=== PATIENT | male | born 1950 | race American Indian/Alaskan Native ===

== ENCOUNTER 2017-08-26 09:46 | Emergency (ER) | payer MEDICARE, OTHER ==
[2017-08-26 09:52] VITALS: BP 161/57
[2017-08-26] MEDS ORDERED: Sodium Chloride 0.9% 10 ML Syringe FLUSH PRN (09:54)
[2017-08-26 10:33] LABS: CHLORIDE,CL 97 mmol/L (101-111); SODIUM,NA 137 mmol/L (135-145)
--- NOTE | 2017-08-26 10:51 | CR ---
CLINICAL HISTORY: 67-year-old male with chest pain. INTERPRETATION: Abnormal. Upright AP portable chest film demonstrates volume loss right lung with extensive subpleural reactive thickening and some underlying platelike atelectasis in the midlung. Previous infection? History tra jv? Normal cardiac silhouette without cephalization of flow, signs of alveolar edema or dependent pleural effusion on the left. No lung mass or hilar lymphadenopathy. No atelectasis or infiltrate in the left lung. No pneumothorax . CONCLUSION: Evidence probable old infection or trauma right chest (see above). No comparison films im mediately available for this institution. No acute cardiopulmonary abnormality.
--- NOTE | 2017-08-26 10:53 | EDM.PDOC ---
ED HPI GENERAL MEDICAL PROBLEM - General Chief Complaint: General Stated Complaint: hypotension, nausea & weak. In by amb Time Seen by Provider: 08/26/17 10:00 Source of Information: Reports: Patient, Family, RN, RN Notes Reviewed History Limitations: Reports: No Limitations - History of Present Illness INITIAL COMMENTS - FREE TEXT/NARRATIVE: Pt presents to the ER per [facility] with c/o hypotension this morning. Patient is a hemodialysis patient and last dialyzed on 08/25 in [place]. Patient reportedly went into cardiac arrest last month and CPR was done. He states he is very sore in the thorax from the CPR. Patient states he was up making his grandson breakfast this morning when he began to feel very weak, dizzy, and like he was going to "black out". Patient states he took his BP at home and it was 70's/30's. Patient presented to the [facility], where he was sent to the ER per ambulance. Upon arrival patient is alert and oriented, and BP is stable. Pt denies dizziness at this time, N/V/D, cough, fever or chills. Onset: Today, Sudden Bilateral Anterior Chest Pain Score (Numeric/FACES): 5 - Related Data Allergies Allergy/AdvReac Type Severity Reaction Status Date / Time amlodipine Allergy Cannot Verified 08/26/17 10:07 Remember bupropion HCl Allergy Cannot Verified 08/26/17 10:07 [From Wellbutrin] Remember duloxetine [Duloxetine] Allergy Cannot Verified 08/26/17 10:07 Remember paroxetine [Paroxetine] Allergy Cannot Verified 08/26/17 10:07 Remember varenicline tartrate Allergy Rash Verified 08/26/17 10:07 [From Chantix] zolpidem tartrate Allergy Cannot Verified 08/26/17 10:07 [From Ambien] Remember Home Meds: Home Meds Gabapentin [Neurontin] 300 mg PO DAILY PRN 07/16/13 [History] Insulin Aspart [Novolog Flexpen] 30 units SUBCUT TID 07/16/13 [History] Insulin Detemir [Levemir Flexpen] 50 unit SQ BEDTIME 07/16/13 [History] Metoprolol Succinate 25 mg PO BID 07/16/13 [History] Aspirin [Halfprin] 81 mg PO DAILY 08/24/13 [History] Calcium Acetate [Phoslo] 2 cap PO TIDM 08/24/13 [History] Furosemide [Lasix] 40 mg PO BID 08/24/13 [History] Simvastatin [Zocor] 20 mg PO BEDTIME 08/24/13 [History] [place]/Min Oil/Karishma/Wool Alcoh [Eucerin Creme] 1 applic TOP DAILY 09/24/14 [ History] Lactose-Reduced Food [Boost] 1 box PO DAILY 09/24/14 [History] Mometasone/Formoterol [Dulera 100-5 MCG] 2 puff INH DAILY 09/24/14 [History] Triamcinolone Acetonide [Triamcinolone Acetonide 0.1% Crm] 1 applic TOP DAILY [History] Vitamin B Complex 1 cap PO DAILY 09/24/14 [History] hydrALAZINE [Apresoline] 25 mg PO BID 09/24/14 [History] hydrALAZINE [Apresoline] 50 mg PO BID 09/24/14 [History] Past Medical History Other HEENT History: I & D of peritonsillar abscess 2010 Other Cardiovascular History: left carotid endarterectomy 2012 (with vein graft) Other Genitourinary History: stage 5 () Other Musculoskeletal History: SHOULD BLADE FRACTURE 2012 Other Endocrine/Metabolic History: diabetic polyneuropathy - Past Surgical History Other HEENT Surgeries/Procedures: septoplasy 2005. Cerumen impaction and removal 2009 Other Musculoskeletal Surgeries/Procedures:: right toe 2013 Social & Family History - Tobacco Use Smoking Status *Q: Former Smoker Years of Tobacco use: 34 Used Tobacco, but Quit: Yes Month/Year Tobacco Last Used: 0 Second Hand Smoke Exposure: Yes - Alcohol Use Days Per Week of Alcohol Use: 0 - Recreational Drug Use Recreational Drug Use: No Drug Use in Last 12 Months: No ED ROS GENERAL - Review of Systems Review Of Systems: ROS reveals no pertinent complaints other than HPI. ED EXAM, GENERAL - Physical Exam Exam: See Below Exam Limited By: No Limitations General Appearance: Alert, WD/WN, No Apparent Distress Eye Exam: Bilateral Eye: EOMI, Normal Inspection Ears: Normal External Exam, Hearing Grossly Normal Nose: Normal Inspection Throat/Mouth: Normal Inspection, Normal Voice, No Airway Compromise Head: Atraumatic, Normocephalic Neck: Normal Inspection, Supple, Non-Tender, Full Range of Motion Respiratory/Chest: No Respiratory Distress, Lungs Clear, Normal Breath Sounds, No Accessory Muscle Use, Chest Non-Tender Cardiovascular: Normal Peripheral Pulses, Regular Rate, Rhythm, No Edema, No Gallop, No JVD, No Murmur, No Rub Peripheral Pulses: 2+: Radial (L), Radial (R) GI/Abdominal: Normal Bowel Sounds, Soft, Non-Tender, No Organomegaly, No Distention, No Abnormal Bruit, No Mass (Male) Exam: Deferred Rectal (Males) Exam: Deferred Back Exam: Normal Inspection, Full Range of Motion, NT Extremities: Normal Inspection, Normal Range of Motion, Non-Tender, No Pedal Edema, Normal Capillary Refill, Other (AV fistula left arm) Neurological: Alert, Oriented, Normal Cognition, Normal Gait, Normal Reflexes, No Motor/Sensory Deficits, Slow to Respond Psychiatric: Flat Affect Skin Exam: Warm, Dry, Intact, Normal Color, No Rash Lymphatic: No Adenopathy EKG INTERPRETATION EKG Date: 08/27/17 Course - Vital Signs Last Recorded V/S: Last Vital Signs Temp 97.6 F 08/26/17 09:51 Pulse 77 08/26/17 09:51 Resp 20 08/26/17 09:51 BP 161/57 H 08/26/17 09:51 Pulse Ox 100 08/26/17 09:51 Orthostatic Blood Pressure [ 144/61 Standing] Orthostatic Blood Pressure [ 149/61 Sitting] Orthostatic Blood Pressure [ 150/50 Supine] - Orders/Labs/Meds Orders: Active Orders 24 hr Category Date Time Status EKG Documentation Completion [RC] STAT Care 08/26/17 09:54 Active Peripheral IV Care [RC] . DIRECTED Care 08/26/17 09:54 Active Peripheral IV Insertion Adult [OM.PC] Stat Oth 08/26/17 09:54 Ordered Labs: Laboratory Tests 08/26/17 08/26/17 08/26/17 Range/Units 10:03 10:03 10:03 WBC 8.2 (5.0-10.0) 10^3/uL RBC 3.92 L (4.6-6.2) 10^6/uL Hgb 11.5 L D (14.0-18.0) g/dL Hct 35.5 L (40.0-54.0) % MCV 90.6 D (80-100) fL MCH 29.3 (27.0-34.0) pg MCHC 32.4 L (33.0-35.0) g/dL Plt Count 175 D (150-450) 10^3/uL Neut % (Auto) 61.0 (42.2-75.2) % Lymph % (Auto) 19.0 L (20.5-50.1) % [place] % (Auto) 14.1 H (2-8) % Eos % (Auto) 5.4 H (1.0-3.0) % Baso % (Auto) 0.5 (0.0-1.0) % PT 9.7 (9.0-12.0) SEC INR 1.0 (0.9-1.2) Sodium 137 (135-145) mmol/L Potassium 4.2 (3.6-5.0) mmol/L Chloride 97 L (101-111) mmol/L Carbon Dioxide 30.0 (21.0-31.0) mmol/L Anion Gap 14.2 BUN 33 H (7-18) mg/dL Creatinine 4.7 H (0.6-1.3) mg/dL Est Cr Clr Drug Dosing 13.95 mL/min Estimated GFR (MDRD) 13 BUN/Creatinine Ratio 7.02 Glucose 158 H (74-105) mg/dL Lactic Acid (0.5-2.2) mmol/L Calcium 7.9 L (8.4-10.2) mg/dl Total Bilirubin 0.7 (0.2-1.0) mg/dL AST 28 (10-42) IU/L ALT 19 (10-60) IU/L Alkaline Phosphatase 149 H (42-121) IU/L Troponin I 0.06 H* (0.00-0.02) ng/ml B-Natriuretic Peptide 593 H (0-100) pg/ml Total Protein 7.9 (6.7-8.2) g/dl Albumin 3.4 (3.2-5.5) g/dl Globulin 4.5 Albumin/Globulin Ratio 0.76 Ethyl Alcohol < 5 mg/dL 08/26/17 Range/Units 10:03 WBC (5.0-10.0) 10^3/uL RBC (4.6-6.2) 10^6/uL Hgb (14.0-18.0) g/dL Hct (40.0-54.0) % MCV (80-100) fL MCH (27.0-34.0) pg MCHC (33.0-35.0) g/dL Plt Count (150-450) 10^3/uL Neut % (Auto) (42.2-75.2) % Lymph % (Auto) (20.5-50.1) % [place] % (Auto) (2-8) % Eos % (Auto) (1.0-3.0) % Baso % (Auto) (0.0-1.0) % PT (9.0-12.0) SEC INR (0.9-1.2) Sodium (135-145) mmol/L Potassium (3.6-5.0) mmol/L Chloride (101-111) mmol/L Carbon Dioxide (21.0-31.0) mmol/L Anion Gap BUN (7-18) mg/dL Creatinine (0.6-1.3) mg/dL Est Cr Clr Drug Dosing mL/min Estimated GFR (MDRD) BUN/Creatinine Ratio Glucose (74-105) mg/dL Lactic Acid 1.1 (0.5-2.2) mmol/L Calcium (8.4-10.2) mg/dl Total Bilirubin (0.2-1.0) mg/dL AST (10-42) IU/L ALT (10-60) IU/L Alkaline Phosphatase (42-121) IU/L Troponin I (0.00-0.02) ng/ml B-Natriuretic Peptide (0-100) pg/ml Total Protein (6.7-8.2) g/dl Albumin (3.2-5.5) g/dl Globulin Albumin/Globulin Ratio Ethyl Alcohol mg/dL Meds: Medications Discontinued Medications Generic Name Dose Route Start Last Admin Trade Name Freq PRN Reason Stop Dose Admin Sodium Chloride 10 ml 08/26/17 09:54 08/26/17 10:25 Saline Flush FLUSH 10 ml ASDIRECTED PRN Administration Keep Vein Open - Radiology Interpretation Free Text/Narrative:: Chest xray: Evidence probable old infection or trauma right chest, No other acute findings See rad report Departure - Departure Time of Disposition: 10:52 Disposition: Home, Self-Care 01 Condition: Fair Clinical Impression: Orthostatic hypotension, CKD (chronic kidney disease) stage 5, GFR less than 15 ml/min - Discharge Information Instructions: Hypotension, [id number] Forms: ED Department Discharge Additional Instructions: Follow up with dialysis tomorrow Follow up with your primary care facility Return to the ER with any further problems. - My Orders Last 24 Hours: My Active Orders 08/26/17 09:54 EKG Documentation Completion [RC] STAT Peripheral IV Care [RC] . DIRECTED Peripheral IV Insertion Adult [OM.PC] Stat - Assessment/Plan Last 24 Hours: My Active Orders 08/26/17 09:54 EKG Documentation Completion [RC] STAT Peripheral IV Care [RC] . DIRECTED Peripheral IV Insertion Adult [OM.PC] Stat
--- NOTE | 2017-08-29 09:56 | EKG ---
08/26/2017- [facility]OR[facility] - FINDINGS: This 12-lead EKG shows normal sinus rhythm with first-degree AV block, UT interval of 220, heart rate of 69. No significant ST elevation or ST depression noted on this 12-lead EKG. Nonspecific T-wave changes noted on leads V2 and V3. [facility] /[id number]
== END 2017-08-26 11:08 | disposition home or self-care (01) ==
LOC: DL.ED 09:46
DX: I95.1 Orthostatic hypotension (principal); E11.22 Type 2 diabetes mellitus with diabetic chronic kidney disease; N18.5 Chronic kidney disease, stage 5; E11.42 Type 2 diabetes mellitus with diabetic polyneuropathy; Z88.8 Allergy status to other drugs, medicaments and biological substances; Z79.899 Other long term (current) drug therapy; Z87.891 Personal history of nicotine dependence
CPT/HCPCS: 36415; 71045; 80053; 83605; 83880; 84484; 85025; 85610; 93005; 93010; 99285; G0480; J7050